=== PATIENT | male | born 1950 | race Caucasian/White ===

== ENCOUNTER 2023-11-29 12:38 | Observation (INO) | payer OTHER ==
[~2023-11-29] VITALS: Ht 177.8 cm; Wt 91.7 kg
[2023-11-29 13:28] LABS: BASO # 0.1 10^3/uL (0.0-0.2); BASO % 0.7 % (0.0-1.0); EOS # 0.2 10^3/uL (0.0-0.5); EOS % 2.3 % (0.0-3.0); HEMATOCRIT 40.5 % (42.0-52.0); HEMOGLOBIN 14.5 g/dl (13.5-17.5); LYMPH # 1.6 10^3/uL (1.5-5.0); LYMPH % 21.1 % (24.0-44.0); MEAN CORPUSCULAR HEMOGLOBIN 32.9 pg (27.0-33.0); MEAN CORPUSCULAR HGB CONC 35.8 g/dl (32.0-36.5); MEAN CORPUSCULAR VOLUME 91.8 fl (80.0-96.0); MONO # 0.5 10^3/uL (0.0-0.8); MONO % 6.8 % (2.0-8.0); NEUTROPHILS # 5.3 10^3/uL (1.5-8.5); NEUTROPHILS % 68.7 % (36.0-66.0); PLATELET COUNT, AUTOMATED 247 10^3/uL (150-450); RED BLOOD COUNT 4.41 10^6/uL (4.30-6.10); WHITE BLOOD COUNT 7.7 10^3/uL (4.0-10.0)
[2023-11-29 14:16] LABS: ALBUMIN 3.6 G/DL (3.2-5.2); BILIRUBIN,DIRECT 0.2 MG/DL (<0.4); BILIRUBIN,TOTAL 0.7 MG/DL (0.3-1.2); THYROID STIMULATING HORMONE 2.087 uIU/ML (0.55-4.78); TOTAL PROTEIN 6.8 G/DL (5.7-8.2)
[2023-11-29] MEDS ORDERED: ISOVUE-370 76% 100ML VIAL As Ordered ONE (14:17)
[2023-11-29 14:21] LABS: MB/CK RELATIVE INDEX 1.55 (< OR =4)
[2023-11-29 14:30] LABS: ETHYL ALCOHOL (ETHANOL) < 0.003 % (0.000-0.010)
[2023-11-29 14:32] LABS: SALICYLATE LEVEL < 3.0 MG/DL (<30)
[2023-11-29] MEDS: NS 500 ML IV ONE (15:10)
[2023-11-29 15:17] LABS: MB/CK RELATIVE INDEX 1.44 (< OR =4)
[2023-11-29] MEDS: ASPIRIN 81MG CHEW TABLET PO ONE (16:19)
[2023-11-29 17:03] LABS: BARBITURATES URINE NEGATIVE (NEGATIVE); COCAINE METABOLITE URINE NEGATIVE (NEGATIVE); METHADONE URINE NEGATIVE (NEGATIVE); OPIATES URINE NEGATIVE (NEGATIVE); PHENCYCLIDINE URINE NEGATIVE (NEGATIVE)
[2023-11-29 17:04] LABS: AMPHETAMINES LEVEL URINE NEGATIVE (NEGATIVE); BENZODIAZEPINES URINE NEGATIVE (NEGATIVE); CANNABINOIDS URINE NEGATIVE (NEGATIVE)
[2023-11-29] MEDS ORDERED: ROSU5TAB5 PO (17:20)
[2023-11-29] MEDS ORDERED: XALA0.007 OS (17:20)
[2023-11-29] MEDS ORDERED: LISI40TA4 PO (17:20)
[2023-11-29] MEDS ORDERED: PRESCAP PO (17:20)
[2023-11-29] MEDS ORDERED: CHLO125TA PO (17:20)
[2023-11-29] MEDS ORDERED: D3 H400T PO (17:20)
[2023-11-29] MEDS ORDERED: METF-838 PO (17:20)
[2023-11-29] MEDS ORDERED: ATEN50TA2 PO (17:20)
[2023-11-29] MEDS ORDERED: HOME MED LIST COMPLETE! XX SCH (17:20)
[2023-11-29] MEDS ORDERED: AMLO1TAB25 PO (17:20)
[2023-11-29] MEDS ORDERED: ACETAMINOPHEN TAB 650MG DOSE (2X325MG) PO PRN (17:35)
[2023-11-29] MEDS ORDERED: DEXTROSE 50% 50ML SYRINGE IV PRN (17:40)
[2023-11-29] MEDS ORDERED: GLUCAGON INJ 1MG VIAL SC PRN (17:40)
[2023-11-29] MEDS ORDERED: GLUCOSE 4GM CHEW TABLET PO PRN (17:40)
[2023-11-29] MEDS: INSULIN LISPRO (NovoLOG) PER UNIT SC SCH ×2 (18:07→22:06)
[2023-11-29] MEDS ORDERED: PILL CUTTER 1 EACH XX ONE (22:04)
[2023-11-29 22:05] VITALS: BP 172/79; TEMP 97; O2SAT 98
[2023-11-29] MEDS: LATANOPROST 0.005% OPHTH SOLN 2.5 ML OS SCH (22:06)
[2023-11-29] MEDS: ROSUVASTATIN 10 MG TAB (CRESTOR) PO SCH (22:07)
[2023-11-29 22:21] VITALS: BP 149/78
[2023-11-30 00:17] VITALS: BP 141/72; TEMP 97.2; O2SAT 97
[2023-11-30 04:05] VITALS: BP 157/68; TEMP 97.6; O2SAT 96
[2023-11-30 08:00] VITALS: BP 155/93; TEMP 97.2; O2SAT 96
[2023-11-30] MEDS: ENOXAPARIN 40MG/0.4ML SYRINGE (J1650 PER 10MG) SC SCH (10:37)
[2023-11-30] MEDS: ASPIRIN 81MG ENTERIC TABLET PO SCH (10:37)
[2023-11-30] MEDS: lisinopriL 40MG TAB PO SCH (10:37)
[2023-11-30 10:38] VITALS: BP 155/93
[2023-11-30] MEDS: atenoloL 50 MG TAB PO SCH (10:38)
[2023-11-30 11:55] LABS: BASO % 0.5 % (0.0-1.0); EOS # 0.1 10^3/uL (0.0-0.5); EOS % 1.5 % (0.0-3.0); HEMATOCRIT 40.3 % (42.0-52.0); HEMOGLOBIN 14.3 g/dl (13.5-17.5); LYMPH # 1.4 10^3/uL (1.5-5.0); LYMPH % 18.7 % (24.0-44.0); MEAN CORPUSCULAR HEMOGLOBIN 32.7 pg (27.0-33.0); MEAN CORPUSCULAR HGB CONC 35.5 g/dl (32.0-36.5); MEAN CORPUSCULAR VOLUME 92.2 fl (80.0-96.0); MONO # 0.6 10^3/uL (0.0-0.8); MONO % 7.8 % (2.0-8.0); NEUTROPHILS # 5.3 10^3/uL (1.5-8.5); NEUTROPHILS % 71.2 % (36.0-66.0); PLATELET COUNT, AUTOMATED 238 10^3/uL (150-450); RED BLOOD COUNT 4.37 10^6/uL (4.30-6.10); WHITE BLOOD COUNT 7.4 10^3/uL (4.0-10.0)
[2023-11-30 12:00] VITALS: BP 146/64; TEMP 97.4; O2SAT 97
[2023-11-30 12:23] LABS: BLOOD UREA NITROGEN 27 MG/DL (9-23); CALCIUM LEVEL 9.9 MG/DL (8.3-10.6); CARBON DIOXIDE LEVEL 30 MMOL/L (20-31); CHLORIDE LEVEL 100 MMOL/L (98-107); CHOLESTEROL LEVEL 105 MG/DL (<200); CHOLESTEROL RISK RATIO 4.21 (<5); CREATININE FOR GFR 1.18 MG/DL (0.70-1.30); GLOMERULAR FILTRATION RATE > 60.0 (>42); GLUCOSE, FASTING 244 MG/DL (74-106); HDL CHOLESTEROL 24.9 MG/DL (>40); LDL CHOLESTEROL 11.7 MG/DL (<100); NON-HDL-C 80.1 MG/DL; POTASSIUM SERUM 3.8 MMOL/L (3.5-5.1); SODIUM LEVEL 137 MMOL/L (136-145); TRIGLYCERIDES LEVEL 342 MG/DL (<150)
[2023-11-30] MEDS ORDERED: NORV5TAB PO (12:54)
[2023-11-30] MEDS ORDERED: ASPI81TAEC PO (12:55)
== END 2023-11-30 16:10 | disposition home or self-care (01) ==
LOC: EDBD 12:38 → M ED 12:38 → INTOOBSV 17:32 → M ED INP 17:32 → M PCU 21:56
PROVIDERS: ADMIT Internal Medicine Nephrology; ATTEND Internal Medicine Nephrology
DX: R55 Syncope and collapse (principal); R25.8 Other abnormal involuntary movements; E11.65 Type 2 diabetes mellitus with hyperglycemia; I10 Essential (primary) hypertension; E78.5 Hyperlipidemia, unspecified; M54.50 Low back pain, unspecified; G89.29 Other chronic pain; I65.01 Occlusion and stenosis of right vertebral artery; R00.1 Bradycardia, unspecified; R22.1 Localized swelling, mass and lump, neck; Z79.899 Other long term (current) drug therapy; Z79.84 Long term (current) use of oral hypoglycemic drugs; Z85.46 Personal history of malignant neoplasm of prostate; Z90.79 Acquired absence of other genital organ(s); G25.0 Essential tremor; Z90.49 Acquired absence of other specified parts of digestive tract; Z85.828 Personal history of other malignant neoplasm of skin; Z80.42 Family history of malignant neoplasm of prostate; Z87.891 Personal history of nicotine dependence
CPT/HCPCS: 36415; 70450; 70496; 70498; 70551; 71045; 80047; 80048; 80061; 80076; 80143; 80307; 81001; 82077; 82140; 82550; 82553; 83605; 84443; 84484; 85025; 93005; 95819; 96360; 96372; 99285; G0378; J1650; J1815; Q9967